=== PATIENT | female | born 1945 | race Caucasian/White ===

== ENCOUNTER → 2023-03-29 | Outpatient (REF) | payer MEDICARE | LOC: RAD 13:44 | PROVIDERS: ATTEND Internal Medicine | DX: R05.9 Cough, unspecified (principal) | CPT/HCPCS: 71046 ==

== ENCOUNTER → 2023-08-22 | Outpatient (REF) | payer MEDICARE | LOC: MAMMO 09:31 | PROVIDERS: ATTEND Internal Medicine | DX: Z12.31 Encounter for screening mammogram for malignant neoplasm of breast (principal) | CPT/HCPCS: 77067 ==

== ENCOUNTER 2023-08-24 13:43 | Emergency (ER) | payer MEDICARE ==
[~2023-08-24] VITALS: Ht 160 cm; Wt 88.9 kg
[2023-08-24] MEDS: TETANUS/DIPHTHERIA TOX ADULT 0.5 ML SYR IM ONE (15:54)
[2023-08-24] MEDS: ACETAMINOPHEN 325 MG TAB PO ONE (15:54)
[2023-08-24 17:51] VITALS: BP 169/85; PULSE 83; RESP 16; O2SAT 100
== END 2023-08-24 17:58 | disposition home or self-care (01) ==
LOC: ER 13:49
DX: S00.83XA Contusion of other part of head, initial encounter (principal); S93.491A Sprain of other ligament of right ankle, initial encounter; W01.0XXA Fall on same level from slipping, tripping and stumbling without subsequent striking against object, initial encounter; Y93.01 Activity, walking, marching and hiking; Y92.89 Other specified places as the place of occurrence of the external cause; I10 Essential (primary) hypertension; E78.5 Hyperlipidemia, unspecified; G35 Multiple sclerosis; H40.9 Unspecified glaucoma; Z96.641 Presence of right artificial hip joint
CPT/HCPCS: 70450; 90714; 99283